=== PATIENT | male | born 1945 | race Caucasian/White ===

== ENCOUNTER → 2018-05-16 | Outpatient (CLI) | payer OTHER ==
[~2018-05-16] MED LIST: ALBUTEROL INHALER; CYC10 PO; FLUT1DIS28 IH; FLUT1DIS32 IH; GUAI-645 PO; HYDR-3140 PO; MOMR; OLME1TAB67 PO; PAN40 PO; PER PO; PROM12.546 PO; VALS1TAB64 PO; [UNRECOGNIZED DRUG - CODE] PO
--- NOTE | 2018-05-16 15:22 | RADIOLOGY IMAGING REPORT ---
[place] [facility] [place] NAME: Wilder Chang : 1945 MR: [id number] V: [id number] EXAM DATE: ORDERING PHYSICIAN: RUTHANN SUMNER TECHNOLOGIST: Location: [facility] [place] Patient: Wilder Chang : 1945 Visit/Account:[id number] Date of Sevice: 05/16/2018 DEXA Scan HISTORY: Osteoporosis screening. COMPARISON: None. LUMBAR SPINE: The bone mineral density (BMD) measured from L1-L4 correlates with a Z-score 2.9 and a T-score of 2. 2 which is normal as defined by the World Health Organization. HIP: Bone mineral density (BMD) measured in the left total hip region correlates with a Z-score -0.1 and a T-score of -1 which is borderline osteopenia as defined by the World Health Organization. Bone mineral density (BMD) measured in the Femoral Neck region measures 0.885 g/cm2 which is in the o steopenia range. IMPRESSION: 1. Lumbar spine: Normal. 2. Left Total Hip: Borderline osteopenia. 3. Femoral Neck: Bone Mineral Density measured 0.885 g/cm2 which is in the osteopenia range. The next DEXA scan of this patient should include the following sites: L1-L4 and the left hip. FRAX? WHO Fracture Risk Assessment Tool link: <http://www.shef.ac.uk/FRAX/tool.jsp?locationValue=9> PLEASE NOTE: 1) The World Health Organization defines low BMD as follows: T-score Normal > -1 Osteopenia < -1 and > -2.5 Osteoporosis < -2.5 without fractures Established osteoporosis < -2.5 with fractures 2) In general, you may wish to consider: Diagnosis Treatment Follow-up DEXA Normal BMD Prevention 2-3 years Osteopenia Prevention/therapy 1-2 years Osteoporosis Therapy Yearly 3) Fracture risk estimated from the T-score is more accurate for vertebral fractures (often spontane ous) than for hip fractures. Report Dictated By: Chetan Solorio MD at 05/16/2018 3:15 PM Report E-Signed By: Chetan Solorio MD at 05/16/2018 3:17 PM WSN:[id number]
== END ==
LOC: RAD 02:40
PROVIDERS: ATTEND Nurse Practitioner Family
DX: M85.80 Other specified disorders of bone density and structure, unspecified site (principal)
CPT/HCPCS: 77080

== ENCOUNTER → 2018-12-26 | Outpatient (CLI) | payer OTHER ==
--- NOTE | 2018-12-26 15:30 | RADIOLOGY IMAGING REPORT ---
FACILITY: [facility] [place] PATIENT NAME: Wilder Chang : 1945 MR: [id number] V: [id number] EXAM DATE: ORDERING PHYSICIAN: RUTHANN SUMNER TECHNOLOGIST: [place] [facility] [place] : 1945 Visit/Account:[id number] Date of Sevice: 12/26/2018 Exam type: CHEST PA LAT History: Cough and sinus infection Comparison: July 23, 2010. Findings: The lungs are free of acute effusions, infiltrates or edema. There is a small linear scar in the lef t lung base unchanged. The cardiac silhouette is upper limits of normal size. Trachea is in midline . There is a levoconvex scoliosis of the thoracic spine IMPRESSION: 1. Small linear scar in the left lung base although no evidence of acute pulmonary consolidation Report Dictated By: Mita Rosales MD at 12/26/2018 3:16 PM Report E-Signed By: Mita Rosales MD at 12/26/2018 3:21 PM WSN:[email or web address]
--- NOTE | 2018-12-26 15:38 | RADIOLOGY IMAGING REPORT ---
[place] [facility] [place] NAME: Wilder Chang : 1945 MR: [id number] V: [id number] EXAM DATE: ORDERING PHYSICIAN: RUTHANN SUMNER TECHNOLOGIST: Location: [facility] [place] Patient: Wilder Chang : 1945 Visit/Account:[id number] Date of Sevice: 12/26/2018 SINUSES < 3 VIEWS HISTORY : Sinus infection AP water and lateral views of the sinuses FINDINGS: The study demonstrates no air-fluid levels within any of the sinuses. The frontal ethmoid and spheno id and maxillary sinuses appear well aerated. No obvious mucoperiosteal thickening or mass lesions a re seen. IMPRESSION: 1. Negative sinus series. Report Dictated By: Sloan Gomez MD at 12/26/2018 3:27 PM Report E-Signed By: Sloan Gomez MD at 12/26/2018 3:29 PM WSN:[email or web address]
== END ==
LOC: RAD 14:01
PROVIDERS: ATTEND Nurse Practitioner Family
DX: J32.9 Chronic sinusitis, unspecified (principal); J44.9 Chronic obstructive pulmonary disease, unspecified; R05 Cough
CPT/HCPCS: 70220; 71046

== ENCOUNTER → 2019-01-03 | Outpatient (CLI) | payer OTHER ==
--- NOTE | 2019-01-03 16:26 | EKG ---
[facility] PATIENT NAME: KRISS CRYSTAL : [id number] MR: [id number] V: [id number] EXAM DATE: ORDERING PHYSICIAN: RUTHANN SUMNER TECHNOLOGIST: DEMARCO Wong Reason : IRREGULAR BEATS Blood Pressure : / mmHG Vent. Rate : 081 BPM Atrial Rate : 081 BPM P-R Int : 206 ms QRS Dur : 104 ms QT Int : 414 ms P-R-T Axes : 076 -50 005 degrees QTc Int : 480 ms Sinus rhythm with frequent premature ventricular complexes in a pattern of bigeminy Possible Left atrial enlargement Left anterior fascicular block Cannot rule out Inferior infarct (masked by fascicular block?) , age undetermined Abnormal ECG No previous ECGs available Confirmed by RODRIGUE COBB ([id number]) on 01/04/2019 3:31:08 AM Referred By: TAISHA Confirmed By:RODRIGUE COBB
== END ==
LOC: RESP 14:27
PROVIDERS: ATTEND Nurse Practitioner Family
DX: R05 Cough (principal); J44.9 Chronic obstructive pulmonary disease, unspecified; R60.9 Edema, unspecified; I49.9 Cardiac arrhythmia, unspecified; D72.828 Other elevated white blood cell count
CPT/HCPCS: 93005